=== PATIENT | female | born 1950 | race Caucasian/White ===

== ENCOUNTER 2020-07-04 07:35 | Outpatient (CLI) | payer MEDICARE, OTHER ==
[2020-07-04 18:01] LABS: Hemoglobin 15.3 g/dL (12.0-16.0)
[2020-07-04 18:14] LABS: Anion Gap 14 mmol/L (10-20); BUN (Urea Nitrogen) 18 mg/dL (9.8-20.1); Calc. Creatinine Clearance 0 mL/min (70-130); Calcium 9.6 mg/dL (7.8-10.44); Carbon Dioxide 26 mmol/L (23-31); Chloride 103 mmol/L (98-107); Estimated GFR-MDRD 55; Glucose 66 mg/dL (83-110); Potassium 4.3 mmol/L (3.5-5.1); Sodium 139 mmol/L (136-145)
[2020-07-05 15:22] LABS: SARS-CoV-2 MS2 Positive; SARS-CoV-2 N Gene Negative; SARS-CoV-2 S Gene Negative; SARS-CoV-2 by NAA Not Detected (NotDetected); SARS-CoV-2 orf1ab Negative
--- NOTE | 2020-07-07 17:28 | EKG ---
Test Reason : EKG Blood Pressure : / mmHG Vent. Rate : 063 BPM Atrial Rate : 063 BPM P-R Int : 168 ms QRS Dur : 076 ms QT Int : 418 ms P-R-T Axes : 063 034 084 degrees QTc Int : 427 ms Normal sinus rhythm Nonspecific ST-T changes No previous ECGs available Confirmed by DR. Nidhi MALHOTRA ([id number]) on 07/07/2020 5:28:15 PM Referred By: DR THOMAS Confirmed By:DR. Nidhi MALHOTRA
== END 2020-07-04 07:36 | disposition home or self-care (01) ==
LOC: LABBT 07:35
PROVIDERS: ATTEND Neurological Surgery
DX: Z01.818 Encounter for other preprocedural examination (principal); Z20.828 Contact with and (suspected) exposure to other viral communicable diseases; G95.9 Disease of spinal cord, unspecified; J38.00 Paralysis of vocal cords and larynx, unspecified; R49.0 Dysphonia; Z87.891 Personal history of nicotine dependence; J30.9 Allergic rhinitis, unspecified; J34.3 Hypertrophy of nasal turbinates
CPT/HCPCS: 80048; 85014; 85018; U0003; 87635; 93005; 93010

== ENCOUNTER 2020-07-09 05:29 | Day surgery (SDC) | payer MEDICARE, OTHER ==
[2020-07-07 15:43] VITALS: BMI 30.1
--- NOTE | 2020-07-08 20:06 | HP ---
HISTORY OF PRESENT ILLNESS: Ms. Welsh is a pleasant 70-year-old woman, presenting to our clinic with a great deal of prior anterior and posterior cervical surgeries. 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 She hopes to proceed with operative management. PAST MEDICAL HISTORY: Significant for chronic back problems, arthritis. PAST SURGICAL HISTORY: Lumbar spine unspecified, cholecystectomy, cervical fusion, hysterectomy. CURRENT MEDICATIONS: 1. Humira. 2. Hydrochlorothiazide. 3. Prozac. 4. Nexium. 5. Losartan. 6. Lipitor. 7. Baclofen. ALLERGIES: NO KNOWN DRUG ALLERGIES. PHYSICAL EXAMINATION: Exam is deferred for COVID Telehealth Visit. ASSESSMENT: Cervical radiculopathy. PLAN: Dr. Morgan met with the patient, reviewed imaging, advocated for C6-C7 ACDF. He explained to the patient the risks, benefits, and alternatives to the procedure. The patient expressed understanding and elected to move forward with surgery as discussed. I do believe the patient is competent and capable of making medical decisions for herself. We will move forward with surgery as planned Job ID: [id number]
[2020-07-09] MEDS ORDERED: Thrombin 5000 UNITS/5 ML VIAL ONE (06:10)
[2020-07-09] MEDS ORDERED: Fentanyl 250 MCG/5 ML VIAL ONE (06:15)
[2020-07-09] MEDS ORDERED: Midazolam HCl 2 mg/2 ml Vial ONE (06:15)
[2020-07-09] MEDS ORDERED: Propofol 500 MG/50 ML VIAL ONE (06:15)
[2020-07-09] MEDS ORDERED: Propofol 1,000 MG/100 ML VIAL IV ONE (06:17)
[2020-07-09] MEDS ORDERED: Lidocaine 1% w/Epinephrine 1:100K 20 ML VIAL ONE (06:18)
[2020-07-09] MEDS ORDERED: Famotidine/PF 20 mg/2ml Vial ONE (06:44)
[2020-07-09] MEDS ORDERED: SUGAMMADEX SODIUM 200 MG/2 ML VIAL ONE (07:46)
[2020-07-09] MEDS ORDERED: HYDROmorphone 2 MG/ML VIAL SLOW IVP PRN (08:25)
[2020-07-09] MEDS ORDERED: Ondansetron HCl/PF 4 MG/2 ML Vial IVP PRN (08:25)
[2020-07-09] MEDS ORDERED: Promethazine HCl 25 MG/ML VIAL SLOW IVP PRN (08:25)
[2020-07-09] MEDS ORDERED: Meperidine HCl/PF 25 MG/ML VIAL SLOW IVP PRN (08:25)
[2020-07-09] MEDS ORDERED: Promethazine HCl 25 MG/ML VIAL IM PRN (08:25)
[2020-07-09] MEDS ORDERED: HYDROcodone/Acetaminophen 5/325 mg Tablet ONE (09:53)
--- NOTE | 2020-07-09 10:06 | OP ---
DATE OF PROCEDURE: 07/09/2020 BUSINESS DEVELOPMENT INTERN: LIDA Camacho Dr. had a separate portion, which will be dictated in a separate note. INDICATION: Pain. DIAGNOSIS: Cervical radiculopathy. PROCEDURES PERFORMED: Reoperation, exploration of fusion, anterior cervical diskectomy and fusion, C6-C7. ANESTHESIA: General. DESCRIPTION OF PROCEDURE: The patient was brought into the operating room and placed under general anesthesia. She was placed on table in a supine position. An incision was planned over the lateral aspect of the neck on the right. Dr. Kehinde Rodriguez was responsible for the exposure down to the prevertebral space. After gaining access into the operative field we identified the patient's plate from a prior cervical construct and identified the C6-C7 space. 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 An annulotomy was then performed at the C6-C7 disk space and disk material as well as anterior and posterior osteophytes were removed until the C6-C7 segment was decompressed. After completing the decompression, a 7-mm lordotic PEEK cage packed with allograft and autograft material was placed within the interbody space. The wound was then irrigated. Hemostasis was maintained throughout. The wound was then closed in anatomic layers, and a pressure dressing was applied. There were no known procedural complications. Job ID: [id number] [facility]
[2020-07-09] MEDS ORDERED: Rocuronium Bromide 10 MG/ML (10ML VIAL) ONE (10:50)
[2020-07-09] MEDS ORDERED: Lidocaine 1% PF 5 ML VIAL ONE (10:50)
[2020-07-09] MEDS ORDERED: Dexamethasone 20 MG/5 ML VIAL ONE (10:50)
[2020-07-09] MEDS ORDERED: Succinylcholine Chloride 20 MG/ML 10 ml SYRINGE FS ONE (10:50)
[2020-07-09] MEDS ORDERED: EPHEDRINE 25 MG/5 ML SYRINGE ONE (10:50)
[2020-07-09] MEDS ORDERED: PROPOFOL 200 MG/20 ML VIAL ONE (10:50)
[2020-07-09] MEDS ORDERED: PHENYLEPHRINE-NS 100 MCG/ML 10 ML SYRINGE ONE (10:50)
[2020-07-09] MEDS ORDERED: Ondansetron PF 4 MG/2 ML Vial ONE (10:50)
--- NOTE | 2020-07-10 08:28 | OP ---
DATE OF PROCEDURE: 07/09/2020 PREOPERATIVE DIAGNOSIS: Cervical myelopathy. POSTOPERATIVE DIAGNOSIS: Cervical myelopathy. PROCEDURES PERFORMED: 1. Anterior approach for anterior cervical disk fusion surgery. 2. Intraoperative laryngeal nerve monitoring. GED TUTOR: Josh Vicente PA-C ESTIMATED BLOOD LOSS: Less than 10 mL. COMPLICATION: None. ANESTHESIA: GETA. DESCRIPTION OF PROCEDURE: The patient was taken to the operating room and placed supine on the table. General endotracheal anesthesia was obtained by the Anesthesia staff. The indirect GlideScope was then used to confirm positioning of the laryngeal electrodes between the vocal cords bilaterally. Following this, the patient was prepped and draped in standard surgical fashion. 8 mL of 1% lidocaine with 1:100,000 epinephrine was injected over the platysma and surgical bed area. Following this, the previous vertically oriented CEA scar was used for the incision site, approximately a 4-5 cm incision was made. The skin, subcutaneous tissue, subplatysmal flaps were elevated bilaterally and the sternocleidomastoid was identified. Dissection was then carried medially into the neck. The carotid artery and jugular vein were retracted medially and the right recurrent laryngeal nerve was identified and was retracted medially along with the thyroid gland. The prevertebral fascia was encountered. Appropriate level was identified and the procedure was then turned over to Dr. Sudeep Morgan. Job ID: [id number]
== END 2020-07-09 12:10 | disposition home or self-care (01) ==
LOC: SDC 05:29
PROVIDERS: ATTEND Neurological Surgery
PROC: 0RG10A0 Fusion of Cervical Vertebral Joint with Interbody Fusion Device, Anterior Approach, Anterior Column, Open Approach (ICD-10-PCS; principal; 2020-07-09)
PROC: 0RT30ZZ Resection of Cervical Vertebral Disc, Open Approach (ICD-10-PCS; 2020-07-09)
DX: M54.12 Radiculopathy, cervical region (principal); G95.9 Disease of spinal cord, unspecified; I12.9 Hypertensive chronic kidney disease with stage 1 through stage 4 chronic kidney disease, or unspecified chronic kidney disease; N18.9 Chronic kidney disease, unspecified; E78.5 Hyperlipidemia, unspecified; G47.30 Sleep apnea, unspecified; F32.9 Major depressive disorder, single episode, unspecified; F41.9 Anxiety disorder, unspecified; M19.90 Unspecified osteoarthritis, unspecified site; Z79.899 Other long term (current) drug therapy; Z98.1 Arthrodesis status
CPT/HCPCS: 20930; 20936; 22551; 22853; 76000; C1713; C1776; J0690; J1100; J2250; J2405; J2704; J3010; S0028